=== PATIENT | male | born 1930 ===

== ENCOUNTER 2016-07-22 10:26 | Emergency (ER) | payer MEDICARE, MEDICAID ==
[2016-07-22 10:49] VITALS: BP 166/67; PULSE 79; RESP 18; TEMP 98.1; O2SAT 98
[2016-07-22] MEDS ORDERED: Oxycodone/Acetaminophen 5/325 mg Tab PO STA (11:15)
[2016-07-22] MEDS ORDERED: Oxycodone/Acetaminophen 5/325 mg Tab ONE (11:26)
--- NOTE | 2016-07-22 12:09 | ED PDOC ---
Lower Extremity Pain/Injury Time Seen by Provider: 07/22/16 10:56 Chief Complaint (Nursing): Hip Pain Chief Complaint (Provider): Hip Pain History Per: Patient History/Exam Limitations: no limitations Onset/Duration Of Symptoms: Days Current Symptoms Are (Timing): Still Present Severity: Severe Additional Complaint(s): Patient is a 86 year old male who presents to ED for 2 dyas of left leg pain. Pain is described as constant but severe with walking. Pain radiates from the left buttocks for foot, mostly posteriorly. Denies fever, back pain, abdominal pain, weakness or numbness. Past Medical History Reviewed: Historical Data, Nursing Documentation, Vital Signs Vital Signs: Last Vital Signs Temp 98.1 F 07/22/16 10:48 Pulse 79 07/22/16 10:48 Resp 18 07/22/16 10:48 BP 166/67 H 07/22/16 10:48 Pulse Ox 98 07/22/16 10:48 - Medical History PMH: Diabetes, HTN - Surgical History Surgical History: No Surg Hx - Family History Family History: States: No Known Family Hx - Home Medications Home Medications: Ambulatory Orders Medication Instructions Recorded Methylprednisolone [Medrol Dosepak] 4 mg PO DAILY #1 packet 07/22/16 oxyCODONE/Acetaminophen [Percocet 1 ea PO Q6 PRN #12 tab 07/22/16 5/325 mg Tab] - Allergies Allergies/Adverse Reactions: Allergies Allergy/AdvReac Type Severity Reaction Status Date / Time merbromin Allergy RASH Verified 07/22/16 10:46 [[place] [facility] [place] Review of Systems Gastrointestinal: Negative for: Abdominal Pain Musculoskeletal: Positive for: Leg Pain. Negative for: Back Pain Neurological: Negative for: Weakness, Numbness Physical Exam - Reviewed Nursing Documentation Reviewed: Yes Vital Signs Reviewed: Yes - Physical Exam Appears: Positive for: Non-toxic, No Acute Distress Skin: Positive for: Normal Color, Warm Eye Exam: Positive for: Normal appearance Neck: Positive for: Normal Gastrointestinal/Abdominal: Positive for: Normal Exam. Negative for: Tenderness , Distended Back: Positive for: Normal Inspection. Negative for: Vertebral Tenderness, Decreased ROM Extremity: Positive for: Normal ROM, Tenderness (left buttock with trigger point tenderness (+) straight leg raise left side. (-) swelling or tenderness through out leg ). Negative for: Calf Tenderness Neurologic/Psych: Positive for: Alert, Oriented. Negative for: Motor/Sensory Deficits - ECG O2 Sat by Pulse Oximetry: 98 (RA) Pulse Ox Interpretation: Normal Medical Decision Making Medical Decision Making: Time: 1110 Initial impression: Sciatica Initial plan: -- Percocet PO -- Toradol IM Scribe Attestation: Documented by Dolores Martinez acting as a scribe for Eusebio George MD MD Scribe Attestation: All medical record entries made by the Scribe were at my direction and personally dictated by me. I have reviewed the chart and agree that the record accurately reflects my personal performance of the history, physical exam, medical decision making, and the department course for this patient. I have also personally directed, reviewed, and agree with the discharge instructions and disposition. Disposition - Clinical Impression Clinical Impression: Sciatica - Patient ED Disposition Is Patient to be Admitted: No Doctor Will See Patient In The: Office Counseled Patient/Family Regarding: Studies Performed, Diagnosis, Need For Followup - Disposition Referrals: Messi Ibanez MD [Family Provider] - Disposition: Routine/Home Disposition Time: 13:35 Condition: GOOD Additional Instructions: Return for worsening. Follow up with your PCP in 2-3 days. Prescriptions: Methylprednisolone [Medrol Dosepak] 4 mg PO DAILY #1 packet oxyCODONE/Acetaminophen [Percocet 5/325 mg Tab] 1 ea PO Q6 PRN #12 tab PRN Reason: Pain, Severe (8-10) Instructions: Sciatica (ED) Print Language: MEXICAN
== END 2016-07-22 13:51 | disposition home or self-care (01) ==
LOC: H.ER 10:26
DX: M54.30 Sciatica, unspecified side (principal); I10 Essential (primary) hypertension; E11.9 Type 2 diabetes mellitus without complications
CPT/HCPCS: 96372; 99284; J1885

== ENCOUNTER 2016-07-24 19:40 | Emergency (ER) | payer MEDICARE, MEDICAID ==
[2016-07-24 19:47] VITALS: BP 172/78; PULSE 96; RESP 16; TEMP 98.4; O2SAT 95
--- NOTE | 2016-07-24 20:25 | ED PDOC ---
HPI: Abdomen Chief Complaint (Provider): vomiting History Per: Patient History/Exam Limitations: language barrier ([facility] # [id number]) Onset/Duration Of Symptoms: Hrs Outside of [place] travel?: No Current Symptoms Are (Timing): Intermittent Episodes Severity: None Pain Scale Rating Of: 0 Associated Symptoms: Vomiting, Diarrhea Exacerbating Factors: Other (oxycodone-acetaminophen prescribed for back pain 2 days ago) Alleviating Factors: None Last Bowel Movement: Today <Chinmay Romano - Last Filed: 07/24/16 21:24> <Woody Miller - Last Filed: 07/25/16 15:51> Time Seen by Provider: 07/24/16 19:52 Chief Complaint (Nursing): GI Problem Additional Complaint(s): 86 y/o male with PMHx remarkable for NIDDM2, HTN, and CVA circa 2012 presents to ED with a complaint of vomiting. Vomiting started this morning after taking medications he was prescribed for nerve compression two days ago. He has had about 6-7 nonbilious/nonbloody/noncoffee ground vomiting episodes since this morning. Vomit consisted of stomach contents he consumed recently. Denies nausea /pain with the episodes. Pt reports 4 episodes of loose nonbloody, non-black, nonmucoid stool today as well. brought him in today because he is a diabetic and was worried about not being able to take his medications but he was able to take them this morning. Denies any recent alcohol or illicit drug use. Reports still having lower back pain and leg pain from two days ago. Denies recent travel/sick contacts/change in diet. Denies fever/chills, CP/SOB/ WATERS, nausea, epigastric pain, LLQ pain, urinary symptoms, numbness/tingling. (Chinmay Romano) Supervising Attending Note <Chinmay Romano - Last Filed: 07/24/16 21:24> - Attestation: I have personally seen and examined this patient.: Yes I have fully participated in the care of the patient.: Yes I have reviewed all pertinent clinical information: Yes <Woody Miller - Last Filed: 07/25/16 15:51> - Notes: Notes:: welll appearing male, pt. vomiting after taking percocet, improved after zofran po. abdomen nontender, no complaints of abd pain. likely medication side effect, told to take 1/2 dose of percocet. (Woody Miller) Past Medical History - Medical History PMH: Diabetes, HTN - Surgical History Other surgeries: peptic ulcer surgery in [place] - Family History Family History: States: Unknown Family Hx <Chinmay Romano - Last Filed: 07/24/16 21:24> <Woody Miller - Last Filed: 07/25/16 15:51> Vital Signs: Last Vital Signs Temp 98.4 F 07/24/16 19:43 Pulse 96 H 07/24/16 19:43 Resp 16 07/24/16 19:43 BP 172/78 H 07/24/16 19:43 Pulse Ox 95 07/24/16 21:26 - Home Medications Home Medications: Ambulatory Orders Medication Instructions Recorded Methylprednisolone [Medrol Dosepak] 4 mg PO DAILY #1 packet 07/22/16 oxyCODONE/Acetaminophen [Percocet 1 ea PO Q6 PRN #12 tab 07/22/16 5/325 mg Tab] - Allergies Allergies/Adverse Reactions: Allergies Allergy/AdvReac Type Severity Reaction Status Date / Time merbromin Allergy RASH Verified 07/22/16 10:46 [From [facility]] Review of Systems ROS Statement: Except As Marked, All Systems Reviewed And Found Negative <Chinmay Romano - Last Filed: 07/24/16 21:24> Physical Exam - Reviewed Vital Signs Reviewed: Yes - Physical Exam Appears: Positive for: Well, Non-toxic, No Acute Distress Head Exam: Positive for: ATRAUMATIC, NORMOCEPHALIC Skin: Positive for: Normal Color, Warm, Dry. Negative for: Diaphoresis, Pallor , Jaundice Eye Exam: Positive for: EOMI, PERRL. Negative for: Conjunctival injection, Scleral icterus Neck: Positive for: Normal, Painless ROM, Supple. Negative for: Decreased ROM Cardiovascular/Chest: Positive for: Regular Rate, Rhythm, Chest Non Tender. Negative for: Edema, Gallop, JVD, Murmur, Friction Rub Respiratory: Positive for: Normal Breath Sounds. Negative for: Crackles, Rales , Rhonchi, Wheezing, Respiratory Distress Pulses-Dorsalis Pedis (L): 2+ Pulses-Dorsalis Pedis (R): 2+ Pulses-Radial (L): 2+ Pulses-Radial (R): 2+ Gastrointestinal/Abdominal: Positive for: Normal Exam, Bowel Sounds (+bowel sounds), Soft. Negative for: Tenderness, Organomegaly, Mass, Distended, Guarding, Rebound Back: Positive for: Other (tenderness to palpation of left lower back ( paraspinally)). 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, Oriented <Chinmay Romano - Last Filed: 07/24/16 21:24> - ECG O2 Sat by Pulse Oximetry: 95 <Chinmay Romano - Last Filed: 07/24/16 21:24> <Woody Miller - Last Filed: 07/25/16 15:51> - Progress ED Course And Treament: Zofran 4mg IM Accucheck PO clear liquid challenge -re-examined at 21:10, pt reports feeling better, no N/V -advised to take half Oxycodone-Acetaminophen dosage (Chinmay Romano) Disposition - Patient ED Disposition Is Patient to be Admitted: No - Disposition Disposition: Routine/Home Disposition Time: 21:26 <Chinmay Romano - Last Filed: 07/24/16 21:24> <Woody Miller - Last Filed: 07/25/16 15:51> - Clinical Impression Clinical Impression: Vomiting, Medication side effect - Disposition Referrals: [facility] [Outside] Condition: STABLE Instructions: Acute Nausea and Vomiting (ED), Adverse Drug Reaction (ED) Print Language: OCCITAN
== END 2016-07-24 21:31 | disposition home or self-care (01) ==
LOC: H.ER 19:40
DX: R11.10 Vomiting, unspecified (principal); T88.7XXA Unspecified adverse effect of drug or medicament, initial encounter; E11.9 Type 2 diabetes mellitus without complications; I10 Essential (primary) hypertension
CPT/HCPCS: 82948; 96372; 99282; J1885